=== PATIENT | female | born 1980 | race Caucasian/White ===

== ENCOUNTER 2018-01-06 23:24 | Emergency (ER) | payer OTHER ==
[2018-01-06 23:59] VITALS: BP 116/67; PULSE 72; TEMP 98.8; BMI 22.6
--- NOTE | 2018-01-07 01:09 | PDOC ---
History of Present Illness - General Chief Complaint: Pain Stated Complaint: STOMACH PAIN Time Seen by Provider: 01/07/18 01:08 History Source: Patient Exam Limitations: No Limitations - History of Present Illness Initial Comments: Pt seen at bedside, also seen by Dr. Mckeon. Pt presenting to ER with aj- umbilical and epigastric pain since yesterday morning. The pain is crampy and lasts about 1 minute. It has worsened today, and is worse when lying flat. She ate fried plantains and spaghetti with tomato sauce for dinner. She did not try any OTC medications. She had 1 loose BM yesterday morning, but denies fevers, nausea/vomiting, and urinary symptoms. She had mild epigastric tenderness on exam, no rebound, no guarding. LMP 11/27/2017 01/07/18 06:57 Past History - Past Medical History Allergies/Adverse Reactions: Allergies Allergy/AdvReac Type Severity Reaction Status Date / Time No Known Allergies Allergy Verified 01/06/18 23:59 Home Medications: Ambulatory Orders Oxycodone HCl/Acetaminophen [Percocet 5/325 -] 1 - 2 tab PO Q6H #20 tab Mag Hydrox/Al Hydrox/Simeth [Mylanta Suspension -] 30 ml PO Q6H #1 bottle Ranitidine HCl [Zantac] 150 mg PO DAILY 14 Days #14 tablet 01/07/18 COPD: No - Immunization History Immunization Up to Date: Yes - Suicide/Smoking/Psychosocial Hx Smoking History: Never smoked Have you smoked in the past 12 months: No Number of Cigarettes Smoked Daily: 0 Cigars Per Day: 0 Hx Alcohol Use: No Drug/Substance Use Hx: No Substance Use Type: None *Physical Exam - Vital Signs Last Vital Signs Temp Pulse Resp BP Pulse Ox 98.8 F 72 18 116/67 100 01/06/18 23:57 01/06/18 23:57 01/06/18 23:57 01/06/18 23:57 01/06/18 23:57 ED Treatment Course - LABORATORY CBC & Chemistry Diagram: 01/07/18 01:42 01/07/18 01:42 Medical Decision Making - Medical Decision Making Pt seen at bedside, also seen by Dr. Mckeon. Pt presenting to ER with aj- umbilical and epigastric pain since yesterday morning. The pain is crampy and lasts about 1 minute. It has worsened today, and is worse when lying flat. She ate fried plantains and spaghetti with tomato sauce for dinner. She did not try any OTC medications. She had 1 loose BM yesterday morning, but denies fevers, nausea/vomiting, and urinary symptoms. She had mild epigastric tenderness on exam, no rebound, no guarding. LMP 11/27/2017 Pt provided maalox and 20 mg IV pepcid. Ordered CBC, CMP, lipase, UA, qualitative beta-hcg. Likely reflux vs vs UTI vs menstrual pain. WBC 11. Urine test negative, no UTI. Pending further labs. Pt has improved with medication. Will perform serial abdominal exam. 01/07/18 02:19 CMP WNL. No elevated lipase. Pt states pain improved after interventions. Tenderness on exam improved. Will send Zantac and Maalox to pharmacy. Pt will follow-up with PCP. Strict return precautions provided with pt understanding. 01/07/18 02:25 *DC/Admit/Observation/Transfer Diagnosis at time of Disposition: Epigastric pain Acid reflux Qualifiers: Esophagitis presence: esophagitis presence not specified Qualified Code(s): K21.9 - Gastro-esophageal reflux disease without esophagitis - Discharge Dispostion Disposition: HOME Condition at time of disposition: Improved Decision to Admit order: No - Prescriptions Prescriptions: Mag Hydrox/Al Hydrox/Simeth [Mylanta Suspension -] 30 ml PO Q6H #1 bottle Ranitidine HCl [Zantac] 150 mg PO DAILY 14 Days #14 tablet - Referrals Referrals: Quyen Woodson [Non Staff, Medical] - - Patient Instructions Printed Discharge Instructions: DI for Dyspepsia Additional Instructions: You were seen in the ER today for abdominal pain and indigestion. You were given medications in the ER which relieved your symptoms (maalox and pepcid). I have sent Maalox and Zantac (150 mg per day) to your pharmacy. Please follow-up with your primary care doctor to discuss your visit and make sure your symptoms have resolved. Please return to the ER if you have worsening abdominal pain, inability to tolerate food or fluid, continued vomiting, or any other concerns. - Post Discharge Activity
[2018-01-07] MEDS ORDERED: MAG HYDROX/AL HYDROX/SIMETH 30 ML UNIT-DOSE CUP PO ONE (01:12)
--- NOTE | 2018-01-07 01:12 | PDOC ---
Attending Attestation - Resident Resident Name: Emma Jimenez - ED Attending Attestation I have performed the following: I have examined & evaluated the patient, The case was reviewed & discussed with the resident, I agree w/resident's findings & plan - Medical Decision Making 01/07/18 02:53 Pt has gastritis. Labs normal. Pt will be discharged home. <Shala Mckeon - Last Filed: 01/07/18 02:53> - HPI HPI: 01/07/18 02:57 The patient is a 37 year old female, with no significant past medical history, who presents to the emergency department with, epigastric and periumbilical pain. As per patient, she was laying down when she began to feel a burning pain sensation going upwards. She reports eating fried plantains and tomato based pasta today. She is currently going through a separation and since then she has been drinking many beers. Her LMP was 11/27/2017. She reports she is can be . She denies recent fevers, chills, headache or dizziness. She denies recent diarrhea or constipation. She denies recent dysuria, frequency, urgency or hematuria. She denies recent chest pain or shortness of breath. Allergies: NKA Past surgical history: None reported. - Physicial Exam PE: 01/07/18 02:57 GENERAL: Awake, alert, and fully oriented, in no acute distress HEAD: No signs of trauma EYES: PERRLA, EOMI, sclera anicteric, conjunctiva clear ENT: Auricles normal inspection, hearing grossly normal, nares patent, oropharynx clear without exudates. Moist mucosa NECK: Normal ROM, supple, no lymphadenopathy, JVD, or masses LUNGS: Breath sounds equal, clear to auscultation bilaterally. No wheezes, and no crackles HEART: Regular rate and rhythm, normal S1 and S2, no murmurs, rubs or gallops +ABDOMEN: Epigastric tenderness. Soft, normoactive bowel sounds. No guarding, no rebound. No masses EXTREMITIES: Normal range of motion, no edema. No clubbing or cyanosis. No cords, erythema, or tenderness NEUROLOGICAL: Cranial nerves II through XII grossly intact. Normal speech, normal gait SKIN: Warm, Dry, normal turgor, no rashes or lesions noted. <Claudio Higgins - Last Filed: 01/07/18 02:57> Attestations - Attestations 01/07/18 02:57 Documentation prepared by Claudio Higgins, acting as medical secretary teacher for Shala Mckeon MD. <Claudio Higgins - Last Filed: 01/07/18 02:57>
[2018-01-07] MEDS ORDERED: MAG HYDROX/AL HYDROX/SIMETH 30 ML UNIT-DOSE CUP ONE (01:21)
[2018-01-07] MEDS ORDERED: FAMOTIDINE 20 MG/50 ML IVPB 20 MG/50 ML MG IVPB ONE ×2 (01:39→01:52)
[2018-01-07 01:55] LABS: URINE APPEARANCE CLEAR; URINE BILIRUBIN NEGATIVE (<2.0 mg/dL); URINE COLOR STRAW; URINE GLUCOSE (UA) NEGATIVE (NEGATIVE); URINE KETONE NEGATIVE (NEGATIVE); URINE LEUK ESTERASE NEGATIVE (NEGATIVE); URINE NITRITE NEGATIVE (NEGATIVE); URINE PROTEIN NEGATIVE (NEGATIVE); URINE UROBILINOGEN NEGATIVE mg/dL (0.2-1.0)
[2018-01-07 01:56] LABS: HCG,QUALITATIVE URINE Negative
[2018-01-07 01:59] LABS: BASO % 0.5 % (0-2.0); EOS % 3.1 % (0-4.5); HEMATOCRIT 33.6 % (32.4-45.2); HEMOGLOBIN 11.5 GM/dL (10.7-15.3); LYMPH % 20.6 % (8-40); MCH 33.4 pg (25.7-33.7); MCHC 34.3 g/dl (32.0-36.0); MEAN CELL VOLUME 97.4 fl (80-96); MEAN PLT VOLUME 7.1 fl (7.5-11.1); MONO % 8.5 % (3.8-10.2); NEUT % 67.3 % (42.8-82.8); PLATELET COUNT 402 K/MM3 (134-434); RBC 3.45 M/mm3 (3.60-5.2); RDW 13.2 % (11.6-15.6); WHITE BLOOD COUNT 11.6 K/mm3 (4.0-10.0)
[2018-01-07 01:59] LABS: EPI CELLS RARE /HPF (FEW); URINE BACTERIA RARE /hpf (NONE SEEN); URINE MUCUS RARE
[2018-01-07 02:19] LABS: ALBUMIN 3.7 g/dl (3.4-5.0); ANION GAP 7 MMOL/L (8-16); BILIRUBIN,TOTAL 0.3 mg/dL (0.2-1.0); BLOOD UREA NITROGEN 10 mg/dL (7-18); CALCIUM 8.4 mg/dL (8.5-10.1); CHLORIDE 107 mmol/L (98-107); CO2 25 mmol/L (21-32); CREATININE 0.9 mg/dL (0.55-1.02); GLUCOSE,RANDOM 100 mg/dL (74-106); LIPASE 136 U/L (73-393); POTASSIUM 3.8 mmol/L (3.5-5.1); SGOT/AST 13 U/L (15-37); SGPT/ALT 15 U/L (12-78); SODIUM 139 mmol/L (136-145); TOT PROT 7.1 g/dl (6.4-8.2)
[2018-01-07 02:20] LABS: ALK PHOS 58 U/L (45-117)
== END 2018-01-07 03:15 | disposition home or self-care (01) ==
LOC: JER 23:24
PROC: 3E033GC Introduction of Other Therapeutic Substance into Peripheral Vein, Percutaneous Approach (ICD-10-PCS; principal; 2018-01-06)
DX: K21.9 Gastro-esophageal reflux disease without esophagitis (principal)
CPT/HCPCS: 36415; 80053; 81003; 81015; 83690; 84703; 85025; 87086; 99283-25

== ENCOUNTER 2023-06-30 15:01 | Emergency (ER) | payer OTHER ==
[2023-06-30 15:11] VITALS: BP 142/82; PULSE 77; RESP 20; TEMP 98; BMI 26.3
[2023-06-30] MEDS ORDERED: ACETAMINOPHEN 325 MG TABLET (FP) ONE (15:35)
[2023-06-30] MEDS: ACETAMINOPHEN 500 MG TABLET (FP) PO ONE (15:38)
== END 2023-06-30 16:53 | disposition home or self-care (01) ==
LOC: FER 15:01
DX: R51.9 Headache, unspecified (principal)
CPT/HCPCS: 99283-25